=== PATIENT | male | born 1975 | race African-American/Black ===

== ENCOUNTER 2018-05-09 09:30 | Emergency (ER) | payer SELFPAY ==
[2018-05-09] MEDS ORDERED: Ketorolac Tromethamine 30 MG/ML VIAL ONE (09:59)
[2018-05-09 10:10] LABS: #Basophils 0.1 thou/uL (0.0-0.2); #Eosinphils 0.1 thou/uL (0.0-0.7); #Monocytes 0.5 thou/uL (0.11-0.59); #Neutrophils 2.7 thou/uL (1.40-6.50); %Basophils 1.9 % (0.0-1.0); %Eosinophils 2.6 % (0.0-10.0); %Lymphocytes 36.3 % (21.0-51.0); %Monocytes 8.6 % (0.0-10.0); %Neutrophils 50.6 % (42.0-75.0); Hemoglobin 13.5 g/dL (14.0-18.0); Mean Corpuscular HGB CONC 32.6 g/dL (32.0-36.0); Mean Corpuscular Hemoglobin 27.3 pg (27.0-31.0); Mean Corpuscular Volume 83.7 fL (78.0-98.0); Mean Platelet Volume 7.4 fL (7.4-10.4); Platelet Count 228 thou/uL (130-400); RBC Distribution Width 11.8 % (11.5-14.5); Red Blood Cell (RBC) Count 4.95 mill/uL (4.70-6.10); White Blood Cell (WBC) Count 5.4 thou/uL (4.8-10.8)
[2018-05-09 10:22] LABS: ALT (SGPT) 18 U/L (8-55); AST (SGOT) 16 U/L (5-34); Albumin 4.3 g/dL (3.5-5.0); Alkaline Phosphatase 86 U/L (40-150); Anion Gap 15 mmol/L (10-20); BUN (Urea Nitrogen) 11 mg/dL (8.9-20.6); Bilirubin, Direct 0.2 mg/dL (0.1-0.3); Bilirubin, Total 0.4 mg/dL (0.2-1.2); Calc. Creatinine Clearance 0 mL/min (70-130); Calcium 9.2 mg/dL (7.8-10.44); Carbon Dioxide 22 mmol/L (22-29); Chloride 108 mmol/L (98-107); Estimated GFR-MDRD 75; Glucose 98 mg/dL (70-105); Lipase 30 U/L (8-78); Potassium 4.2 mmol/L (3.5-5.1); Protein, Total 7.2 g/dL (6.0-8.3); Sodium 141 mmol/L (136-145)
--- NOTE | 2018-05-09 11:24 | CT ---
CT ABDOMEN AND PELVIS WITH CONTRAST: Date: 05/09/18 HISTORY: Sudden onset of groin pain. COMPARISON: None. FINDINGS: Lung bases are clear. No pericardial effusion. There is a small hypodensity, hepatic segment 8, likely a cyst, although too small to fully character ize. The pancreas, spleen, and gallbladder are unremarkable. The appendix is visualized and is normal. There are abnormal right superficial inguinal lymph nodes m easuring up to 2.1 cm in short axis dimension. There is adjacent soft tissue swelling. The deep ingui nal lymph nodes are also mildly prominent. A common femoral lymph node on the right measures up to 9. 0 mm in short axis. No internal iliac adenopathy. The left groin also has a mildly prominent superficial inguinal lymph n ode which measures 13.0 mm in short axis. No dilated loops of large or small bowel. No retroperitoneal adenopathy. Aortoiliac contour is nonane urysmal. Kidneys are unremarkable. Adrenal glands are unremarkable. No acute osseous abnormality. IMPRESSION: Soft tissue swelling of the right groin with prominent superficial and deep inguinal lymph nodes. Rec ommend correlation for history of infection. No drainable fluid collection. Close attenuation and fol low-up is recommended. If the swelling does not improve, ultrasound guided right inguinal lymph node biopsy would be recommended. POS: [facility]
== END 2018-05-09 11:28 | disposition home or self-care (01) ==
LOC: SCSER 09:30
DX: R59.1 Generalized enlarged lymph nodes (principal)
CPT/HCPCS: 74177; 80048; 80076; 83690; 85025; 96374; J1885